=== PATIENT | female | born 1990 | race Asian ===

== ENCOUNTER 2018-05-23 06:04 | Inpatient (IN) | payer OTHER ==
[~2018-05-23] VITALS: Ht 160 cm; Wt 93.4 kg
[2018-05-23 07:31] LABS: RBC DISTRIBUTION WIDTH 19.1 % (11.5-14.5)
[2018-05-23 07:34] LABS: ABSOLUTE BASOPHIL COUNT 0.1 /CUMM (0.0-0.2); ABSOLUTE EOSINOPHIL COUNT 0.2 /CUMM (0.0-0.7); ABSOLUTE GRANULOCYTE CT 10.5 /CUMM (1.4-6.5); ABSOLUTE LYMPH COUNT 4.3 /CUMM (1.2-3.4); ABSOLUTE MONOCYTE COUNT 0.9 /CUMM (0.10-0.60); BASOPHIL % 0.5 % (0.0-2.0); EOSINOPHIL % 1.2 % (0-5); GRANULOCYTE % 65.7 % (42.2-75.2); MEAN CORPUSCULAR HGB CONC 33.1 G/DL (33.0-37.0); MEAN CORPUSCULAR VOLUME 75.7 FL (81.0-99.0); MEAN PLATELET VOLUME 9.2 FL (7.4-10.4); RED BLOOD CELL CT 4.36 /CUMM (4.20-5.40); WHITE BLOOD CELL COUNT 15.9 /CUMM (4.8-10.8)
[2018-05-23 07:57] LABS: ABSOLUTE BASOPHIL COUNT 0.1 /CUMM (0.0-0.2); ABSOLUTE EOSINOPHIL COUNT 0.2 /CUMM (0.0-0.7); ABSOLUTE GRANULOCYTE CT 9.7 /CUMM (1.4-6.5); ABSOLUTE MONOCYTE COUNT 0.9 /CUMM (0.10-0.60); BASOPHIL % 0.4 % (0.0-2.0); EOSINOPHIL % 1.2 % (0-5); GRANULOCYTE % 65.2 % (42.2-75.2); HEMATOCRIT 34.9 % (37-47); MEAN CORPUSCULAR HGB CONC 33.2 G/DL (33.0-37.0); MEAN CORPUSCULAR VOLUME 75.2 FL (81.0-99.0); RBC DISTRIBUTION WIDTH 19.4 % (11.5-14.5); RED BLOOD CELL CT 4.64 /CUMM (4.20-5.40); WHITE BLOOD CELL COUNT 14.9 /CUMM (4.8-10.8)
[2018-05-23 08:23] LABS: PLATELET COUNT 232 /CUMM (130-400)
--- NOTE | 2018-05-23 09:10 | Operative Report ---
Operative/Inv Procedure Report Surgery Date: 05/23/18 Name of Procedure: Repeat low flap transverse section lysis of adhesions via Pfannenstiel skin incision Pre-Operative Diagnosis: Term previous section gestational diabetes Post-Operative Diagnosis: Same uterine window Estimated Blood Loss: 500 Surgeon/Edge Polisher: Tonja Bryant MD Anesthesia: block Operative/Procedure Note Note: Procedure note patient was taken to the operating room placed supine position after adequate anesthesia patient placed in dorsolithotomy position the vagina from dorsal fashion bladder was catheterized examination under anesthesia performed patient was returned spine position the abdomen was prepped and draped so fashion the abdomen was found to be adequate skin testing for spinal anesthesia at this point through an old Pfannenstiel skin incision 2 finger breadths of symptoms pubis in midline skin was cut was carried down to rectus fascia which was cut in curvilinear fashion I direction peritoneal cavity was entered high into the abdomen the low blade the Temple was placed and lower and incision the visceral peritoneum of the uterus was dissected anteriorly at this point on the right hand side was noted the 4 cm uterine window uterus was entered with the back of knife dissected bluntly as well as and the infant was delivered over the abdominal wall vertex position cord was doubly clamped and cut and was handed public health technician was waiting delivering to aid in resuscitation placenta was delivered manually noted to be intact was wiped clean with 2 wet dry laps to ensure was free of adherent membranes was oversewn running locking suture was indicated interrupted [id number] for hemostasis the uterus is irrigated copious amounts warm saline hemostasis was apparent uses turned to abdominal cavity found to be hemostatic was irrigated twice with I copious amounts of warm saline this point peritoneum was reapproximated using 0 the fascia was reapproximated to continue sutures #1 the skin was reapproximated jannette after Bovie coagulation subcutaneous tissue patient tolerated that well all instrument counts were correct lap pad counts were correct urine was clear at the end the case sterile dressing was applied the incision patient and infant were transferred recovery room awake alert Findings: Normal tubes and ovaries bilaterally a 4 cm uterine window
[2018-05-24 09:22] LABS: ABSOLUTE BASOPHIL COUNT 0 /CUMM (0.0-0.2); ABSOLUTE EOSINOPHIL COUNT 0.1 /CUMM (0.0-0.7); ABSOLUTE LYMPH COUNT 3.9 /CUMM (1.2-3.4); ABSOLUTE MONOCYTE COUNT 0.6 /CUMM (0.10-0.60); BASOPHIL % 0.3 % (0.0-2.0); GRANULOCYTE % 63.1 % (42.2-75.2); MEAN CORPUSCULAR HGB 25.4 PG (27.0-31.0); MEAN CORPUSCULAR HGB CONC 33.8 G/DL (33.0-37.0); MEAN PLATELET VOLUME 8.7 FL (7.4-10.4); RBC DISTRIBUTION WIDTH 19.1 % (11.5-14.5); RED BLOOD CELL CT 4.13 /CUMM (4.20-5.40); WHITE BLOOD CELL COUNT 12.7 /CUMM (4.8-10.8)
--- NOTE | 2018-05-24 10:20 | PN- Post Delivery/GYN ---
Subjective Subjective: NO COMPLAINTS Objective Last 24 Hrs of Vital Signs/I&O PER CHART Physical Exam: PE THIN WF IN NAD HEENT PERRLA EOMI FUNDUS FIRM NT LOCHIA MINIMAL EXT -EDEMA-LETICIA INCISION CDI Assessment/Plan Assessment/Plan ASSESS S/P C/S PLAN CONTPPC
--- NOTE | 2018-05-25 14:23 | PN- Post Delivery/GYN ---
Subjective Subjective: NO COMPLAINTS Objective Last 24 Hrs of Vital Signs/I&O PER CHART Physical Exam: PE THIN FEMALE ABD SOFT NT INCISION CDI FUNDUS FIRM NT LOCHIA MINIMAL EXT -EDEMA -HOMANS Assessment/Plan Assessment/Plan ASSESS S/P C/S PLAN CONT PPC
[2018-05-25] MEDS ORDERED: PERCOCET 5-3251 EACH PO (14:26)
[2018-05-25] MEDS ORDERED: IBUPROFEN800 M1 PO (14:26)
== END 2018-05-26 11:58 | DRG 540 ==
LOC: GNO 06:04
PROVIDERS: Specialist
PROC: 10D00Z1 Extraction of Products of Conception, Low, Open Approach (ICD-10-PCS; principal; 2018-05-23)
DX: O34.211 Maternal care for low transverse scar from previous cesarean delivery (principal); N85.8 Other specified noninflammatory disorders of uterus; O24.429 Gestational diabetes mellitus in childbirth, unspecified control; Z3A.39 39 weeks gestation of pregnancy; Z37.0 Single live birth
CPT/HCPCS: GNOS; 36415; 81003; 87071; 87086; 88307; J1200; J1650; J1885; J7120